=== PATIENT | male | born 1965 | race American Indian/Alaskan Native ===

== ENCOUNTER 2016-12-06 16:45 | Emergency (ER) | payer SELFPAY ==
[2016-12-06 17:12] VITALS: BP 132/89
== END 2016-12-07 01:23 | disposition left against medical advice (07) ==
LOC: ED 16:45
DX: R51 Headache (principal); Z53.21 Procedure and treatment not carried out due to patient leaving prior to being seen by health care provider

== ENCOUNTER 2017-08-18 21:50 | Emergency (ER) | payer SELFPAY ==
[2017-08-18 22:42] VITALS: BP 122/81
== END 2017-08-19 04:50 | disposition left against medical advice (07) ==
LOC: ED 21:50
DX: R09.81 Nasal congestion (principal); Z53.21 Procedure and treatment not carried out due to patient leaving prior to being seen by health care provider